=== PATIENT | male | born 1945 | race Caucasian/White ===

== ENCOUNTER 2019-08-05 17:04 | Emergency (ER) | payer OTHER ==
[~2019-08-05] VITALS: Ht 162.6 cm; Wt 72.6 kg
--- NOTE | 2019-08-05 17:11 | NUR ---
Patient to ER bed 02 to gown for evaluation. Side rails up.
--- NOTE | 2019-08-05 17:11 | NUR ---
Patient brought in by ambulance in the ED, c/o LLE edema and pain that started today - possible DVT. Denied any nausea, vomiting or diarrhea. Denied any chest pain, SOB, or blurry vision. Patient is alert and oriented x3, respirations even and unlabored, speaking in full sentences. Informed of wait time. Instructed to notify ED staff for any changes in condition or worsening of symptoms. Patient verbalized understanding.
--- NOTE | 2019-08-05 17:12 | NUR ---
DOMI Johnson at bedside examining patient.
[2019-08-05 17:13] VITALS: BP_SYST 147; BP_SYST 149
--- NOTE | 2019-08-05 17:32 | NUR ---
ECG done at bedside by Estevan Mayes, RANDI. Patient tolerated the procedure well.
--- NOTE | 2019-08-05 17:40 | NUR ---
# 20 gauge angiocath placed to RFA. Use of asceptic technique. Opsite placed over site. Blood return noted. Blood for lab drawn from site. Flushed with 10 cc of normal saline. No evidence of infiltration noted. Patient tolerated well.
[2019-08-05 17:41] LABS: BASOPHILS # (AUTO) 0.1 K/uL (0.0-0.2); BASOPHILS % (AUTO) 0.7 % (0.0-2.0); EOSINOPHILS # (AUTO) 0.2 K/uL (0.0-0.4); EOSINOPHILS % (AUTO) 1.6 % (0.0-4.0); HEMATOCRIT 40.3 % (36-54); HEMOGLOBIN 14.1 g/dL (14.0-18.0); LYMPHOCYTES # (AUTO) 2.3 K/uL (1.0-5.5); LYMPHOCYTES % (AUTO) 21.3 % (20.5-51.5); MEAN CORPUSCULAR HEMOGLOBIN 30 pg (27-31); MEAN CORPUSCULAR HGB CONC 35 % (32-36); MEAN CORPUSCULAR VOLUME 86 fL (79.0-98.0); MONOCYTES # (AUTO) 0.8 K/uL (0.0-1.0); MONOCYTES % (AUTO) 7.6 % (1.7-9.3); NEUTROPHILS # (AUTO) 7.4 K/uL (1.8-7.7); NEUTROPHILS % (AUTO) 68.8 % (40.0-70.0); PLATELET COUNT (AUTO) 331 K/uL (130-430); RED BLOOD CELL COUNT(AUTO) 4.68 MIL/uL (4.2-6.2); WHITE BLOOD COUNT (AUTO) 10.7 K/uL (4.8-10.8)
--- NOTE | 2019-08-05 17:45 | NUR ---
Ultrasound done at bedside as ordered by Dr. Johnson. Patient tolerated the procedure well.
[2019-08-05 17:51] LABS: ANION GAP 6 (5-15); CALCIUM 8.8 mg/dL (8.4-11.0); CHLORIDE 97 mmol/L (98-107); CREATININE 1.11 mg/dL (0.55-1.30); GLUCOSE 114 mg/dL (70-99); INR 1.1 (0.80-1.20); POTASSIUM 3.6 mmol/L (3.5-5.1); PROTHROMBIN TIME 10.8 SECS (9.5-12.5); SODIUM SERUM 134 mmol/L (136-145); UREA NITROGEN, BLOOD 17 mg/dL (8-21)
[2019-08-05 18:03] LABS: ALANINE AMINOTRANSFERASE 22 U/L (12-78); ALBUMIN 3.4 g/dL (3.4-4.8); ASPARTATE AMINOTRANSFERASE 20 U/L (10-37); TOTAL BILIRUBIN 0.5 mg/dL (0.0-1.0)
[2019-08-05] MEDS ORDERED: LEVO75TA7 PO (18:26)
[2019-08-05] MEDS ORDERED: FURO-149 PO (18:26)
[2019-08-05] MEDS ORDERED: ASPI-1153 PO (18:26)
[2019-08-05] MEDS ORDERED: SITA100T11 PO (18:26)
[2019-08-05] MEDS ORDERED: AMLO5TAB4 PO (18:26)
[2019-08-05] MEDS ORDERED: MOM PO (18:26)
[2019-08-05] MEDS ORDERED: OMEP20CA11 PO (18:26)
[2019-08-05] MEDS ORDERED: LOSA100T3 PO (18:26)
[2019-08-05] MEDS ORDERED: BISA10SU61 RC (18:26)
[2019-08-05] MEDS ORDERED: METO50TA16 PO (18:26)
[2019-08-05] MEDS ORDERED: SSNOVOLOG SUBCUT (18:26)
[2019-08-05] MEDS ORDERED: ACET-2165 PO (18:26)
[2019-08-05] MEDS ORDERED: LIP40 PO (18:26)
[2019-08-05] MEDS ORDERED: METF1000 PO (18:26)
--- NOTE | 2019-08-05 18:26 | NUR ---
Reconciled medications and belonging's list done.
--- NOTE | 2019-08-05 18:34 | NUR ---
Accucheck done at bedside, 98. Notified
--- NOTE | 2019-08-05 18:55 | NUR ---
Urine specimen and MRSA swab done at bedside. Patient tolerated the procedure well.
--- NOTE | 2019-08-05 19:16 | NUR ---
Report given and care transferred to [facility].
--- NOTE | 2019-08-05 19:16 | NUR ---
Pt resting quietly, easily awakened, denies c/o pain or discomfort. No needs verbalized.
[2019-08-05 19:53] LABS: BILIRUBIN,URINE NEGATIVE (NEGATIVE); BLOOD, URINE NEGATIVE (NEGATIVE); CLARITY/URINE CLEAR (CLEAR); COLOR,URINE YELLOW (YELLOW); GLUCOSE,URINE NEGATIVE (NEGATIVE); KETONES,URINE NEGATIVE (NEGATIVE); LEUKOCYTE ESTERASE ,URINE NEGATIVE (NEGATIVE); NITRITE, URINE NEGATIVE (NEGATIVE); PH,URINE 5.5 (5.0-8.0); PROTEIN URINE NEGATIVE (NEGATIVE); UROBILINOGEN,URINE 0.2 (0.2-1.0)
[2019-08-05 20:32] VITALS: BP_SYST 131
== END 2019-08-05 20:32 | disposition home or self-care (01) ==
LOC: SED 17:04
DX: R20.2 Paresthesia of skin (principal); R53.1 Weakness; I10 Essential (primary) hypertension; E11.9 Type 2 diabetes mellitus without complications; E78.00 Pure hypercholesterolemia, unspecified; Z79.82 Long term (current) use of aspirin; Z79.899 Other long term (current) drug therapy; Z79.84 Long term (current) use of oral hypoglycemic drugs
CPT/HCPCS: 36415; 80053; 81003; 85025; 85379; 85610-TC; 93005; 93970; 99284